=== PATIENT | male | born 1940 | race Caucasian/White ===

== ENCOUNTER 2024-06-14 15:16 | Emergency (ER) | payer MEDICARE, OTHER ==
[~2024-06-14] VITALS: Ht 167.6 cm; Wt 79.0 kg
[~2024-06-14 15:16] MED LIST: ALL100T PO; APIX5TAB OR; ATOR10TA52 PO; LEVO112T4 PO; LISI-275 PO
[2024-06-14 15:42] VITALS: BP 158/79; PULSE 63; RESP 16; TEMP 98.6; O2SAT 98
[2024-06-14] MEDS ORDERED: LIDOCAINE HCL (LOCAL ANESTH.) 0.5 % 50ML MDV IJ ONE (15:45)
--- NOTE | 2024-06-14 15:51 | ED.PDOC ---
HPI Comments A 84 YEAR OLD MALE PRESENTS TO THE ED WITH COMPLAINT OF LACERATION OF LEFT LOWER LEG. PATIENT STATES HE ACCIDENTALLY RAN INTO A [employer]AR[employer]ER TODAY WHICH THEN CUT HIS LEFT LOWER LEG. BLEEDING IS CONTROLLED AT THIS TIME. PATIENT DENIES FEVER, CHILLS, SHORTNESS OF BREATH, CHEST PAIN, ABDOMINAL PAIN, NAUSEA, VOMITING, HEADACHE, OR OTHER COMPLAINTS. NO OTHER SYMPTOMS OR MODIFYING FACTORS AT THIS TIME. PATIENT IS ALERT, ORIENTED X 4, AND HAS STEADY GAIT. Chief Complaint: Laceration Time Seen by MD: 15:37 Reviewed Notes: Nurses Notes, Medications, Allergies Allergies: Coded Allergies: NO KNOWN ALLERGIES (Unverified , 05/11/17) Home Meds Reported Medications Atorvastatin Calcium (ATORVASTATIN CALCIUM) 10 Mg Tab, 1 TAB PO DAILY, #30 TAB 5 Refills 05/11/17 Levothyroxine Sodium (Levothyroxine Sodium) 112 Mcg Tab, 1 TAB PO DAILY, #30 TAB 5 Refills 11/03/16 Allopurinol (ZYLOPRIM TABLET) 100 Mg Tb, 200 MG PO DAILY, #30 TAB 5 Refills 11/03/16 Lisinopril (Lisinopril) 5 Mg Tab, 5 MG PO QPM, TAB 11/03/16 Apixaban Base (ELIQUIS) 5 Mg Tab, 5 MG OR BID, TAB 11/03/16 Information Source: Patient Mode of Arrival: Ambulatory Severity: Moderate Severity of Laceration: Controlled Bleeding Complexity: Simple Timing: Hours Prehospital treatment: None Laceration Location: Leg (LEFT LOWER LEG) Mechanism: Other (ANTWAN SARGENT THORNS) Last Tetanus: > 5 Years, Unknown Laceration Length (cm): 10 Skin Type: Irregular Depth of Injury: SQ Tendon Injury: 0% Capillary Refill: < 3 seconds Tender: Moderate Discharge: None Erythema: None Associated Signs and Symptoms: None Past Medical History PAST MEDICAL HISTORY: High Lipids, HTN Surgical History: Pacemaker, Thyroidectomy Surgical History (Other): BILATERAL KNEE REPLACEMENT, RIGHT HIP REPLACEMENT Family History Family History: Reviewed,noncontributory to illness Social History Smoker: Non-Smoker Alcohol: Denies ETOH Use Drugs: Denies Drug Use Lives In: Home Constitutional: denies: chills, diaphoresis, fatigue, fever, malaise, sweats, weakness, others EENTM: denies: blurred vision, double vision, ear bleeding, ear discharge, ear drainage, ear pain, ear ringing, eye pain, eye redness, hearing loss, mouth pain, mouth swelling, nasal discharge, nose bleeding, nose congestion, nose pain, photophobia, tearing, throat pain, throat swelling, voice changes, others Respiratory: denies: cough, hemoptysis, orthopnea, SOB at rest, shortness of breath, SOB with excertion, stridor, wheezing, others Cardiovascular: denies: chest pain, dizzy spells, diaphoresis, Dyspnea on exertion, edema, irregular heart beat, left arm pain, lightheadedness, palpitations, PND, syncope, others Gastrointestinal: denies: abdomen distended, abdominal pain, blood streaked bowels, constipated, diarrhea, dysphagia, difficulty swallowing, hematemesis, melena, nausea, poor appetite, poor fluid intake, rectal bleeding, rectal pain, vomiting, others Genitourinary: denies: burning, dysuria, flank pain, frequency, hematuria, incontinence, penile discharge, penile sore, pain, testicle pain, testicle swelling, urgency, others Neurological: denies: dizziness, fainting, headache, left sided numbness, left sided weakness, numbness, paresthesia, pre-existing deficit, right sided numbness, right sided weakness, seizure, speech problems, tingling, tremors, weakness, others Musculoskeletal: denies: back pain, gout, joint pain, joint swelling, muscle pain, muscle stiffness, neck pain, others Integumetry: reports: laceration (LACERATION OF LEFT LOWER LEG), lesions (SKIN TEAR OF LEFT ANTERIOR LOWER LEG. ); denies: bruises, change in color, change in hair/nails, dryness, lumps, rash, wounds, others Allergic/Immunocompromised: denies: Difficulty Healing, Frequent Infections, Hives, Itching, others Hematologic/Lymphatic: denies: anemia, blood clots, easy bleeding, easy bruising, swollen glands, others Endocrine: denies: excessive hunger, excessive sweating, excessive thirst, excessive urination, flushing, intolerance to cold, intolerance to heat, unexplained weight gain, unexplained weight loss, others Psychiatric: denies: anxiety, bipolar disorder, depression, hopeless, panic disorder, schizophrenia, sleepless, suicidal, others All Other Systems: Reviewed and Negative Physical Exam General Appearance: No Apparent Distress, Normal HEENT: Normal ENT Inspection, PERRL/EOMI, Pharynx Normal, TMs Normal Neck: Full Range of Motion, Non-Tender, Normal, Normal Inspection Respiratory: Chest Non-Tender, Lungs Clear, No Accessory Muscle Use, No Respiratory Distress, Normal Breath Sounds Cardiovascular: No Edema, No JVD, No Murmur, No Gallop, Normal Peripheral Pulses, Regular Rate/Rhythm Breast Exam: Deferred Gastrointestinal: No Organomegaly, Non Tender, No Pulsatile Mass, Normal Bowel Sounds, Soft Genitalia: Deferred Pelvic: Deferred Rectal: Deferred Extremities: No calf tenderness, Normal capillary refill, Normal range of motion, No pedal edema, Tender (WITH LACERATION AND SKIN TEAR ON LEFT ANTERIOR LOWER LEG, NO BONY TENDERNESS, SWELLING AND DEFORMITY. ) Musculoskeletal : Apperance: Normal Neurologic: Alert, manufacturing support engineer II-XII nml as Tested, No Motor Deficits, Normal Affect, Normal Mood, No Sensory Deficits Cerebellar Function: Normal Reflexes: Normal Skin: Dry, Lacerations (10CM IRREGULAR LACERATION ON LEFT ANTERIOR LOWER LEG, NO BLEEDING AND BLOOD CLOTS, TWO SKIN TEARS ON LEFT ANTERIOR LOWER LEG, NO BLEEDING AND BLOOD CLOTS. ), Normal Color, Warm Peripheral Pulses: 2+ carotid (R), 2+ carotid (L), 2+ dorsalis pedis (R), 2+ dorsalis pedis (L) Lymphatic: No Adenopathy Was a procedure done? Was a procedure done?: Yes Sedation Sedation?: No Laceration Repair : Location LEFT LOWER LEG Length 10CM Anesthetic: Lidocaine, Without epi Laceration Repair Prep: Saline, by Irrigation Laceration Repair Wound Comple: epidermis/dermis repair Laceration Repair: Number of sutures (20), Skin, SQ, Size (4-0 ETHILON), Nylon, Simple, Bacitracin, Gauze Informed consent obtained: No Risks, benefits, and alternati: Yes Images 1 - 2 - Differential diagnosis Generic Laceration: Abrasion/Contusion, Laceration, Avulsion Differential Diagnosis: N/A X-Ray, Labs, Meds, VS Vital Signs Date Time Temp Pulse Resp B/P (MAP) Pulse Ox O2 Delivery O2 Flow Rate FiO2 06/14/24 15:42 63 16 98 Room Air 06/14/24 15:42 98.6 63 16 158/79 (105) 98 98.6 06/14/24 15:20 98.6 63 16 158/79 (105) 98 Current Medications Medications (Trade) Dose Ordered Sig/Jose Route Start Time Stop Time Status Last Admin Ceftriaxone Sodium (Rocephin) 1,000 mg ONCE ONCE IM 06/14/24 16:15 06/14/24 16:16 DC 06/14/24 16:23 Diphtheria/ Tetanus/Acell Pertussis (Boostrix T-Dap) 0.5 ml ONCE ONCE IM 06/14/24 16:15 06/14/24 16:16 DC 06/14/24 16:25 X-Ray, Labs, Meds, VS Comment EXTERNAL MEDICAL RECORDS REVIEWED: [NONE] INDEPENDENT HISTORIANS: [NONE] SOCIAL DETERMINANTS OF HEALTH: [NONE] LABS ORDERED: NONE REVIEWED AND INTERPRETED RESULTS: NONE IMAGING ORDERED: NONE TREATMENTS ORDERED: ROCEPHIN 1G IM, TYLENOL 1G PO, TETANUS 0.5ML IM PROCEDURES PERFORMED: NONE CRITICAL CARE TIME: NONE I HAVE DISCUSSED THE PATIENT WITH THE ATTENDING PHYSICIAN DR. ONEIL AND HE AGREES WITH THE PATIENT'S PLAN OF CARE AND DISPOSITION. BASED ON HISTORY OF PRESENT ILLNESS, AND PHYSICAL EXAM, PATIENT WILL BE DISCHARGED HOME. DISCUSSED PLAN FOR DISCHARGE HOME WITH RX [KEFLEX]. MEDICATION WARNINGS GIVEN. PATIENTWAS INSTRUCTED TO ELEVATE HIS LEFT LOWER LEG AND APPLY ICE TO THE AFFECTED AREA. PATIENT WAS INSTRUCTED TO RETURN FOR A WOUND RECHECK IN TWO DAYS. SHARED DECISION MAKING: PATIENT INSTRUCTED TO FOLLOW UP WITH PRIMARY CARE PROVIDER IN 1-2 DAYS FOR RE-EVALUATION OF SYMPTOMS. PATIENT VERBALIZES UNDERSTANDING TO RETURN TO ED FOR NEW OR WORSENING SYMPTOMS OR IF FOLLOW UP WITH PCP CANNOT BE OBTAINED. PATIENT FEELS COMFORTABLE GOING HOME AT THIS TIME. ALL QUESTIONS ADDRESSED AT TIME OF DISCHARGE. Time of 1ST Reevaluation: 16:00 Reevaluation 1ST: Improved Patient Education/Counseling: Diagnosis, Treatment, Need For Follow Up Family Education/Counseling: Diagnosis, Treatment, Need For Follow Up Medical Screening: No EMC Exist At This Time Departure 1 Departure Time of Disposition: 16:00 Impression: Primary Impression: Laceration of left lower leg Qualified Codes: S81.812A - Laceration without foreign body, left lower leg, initial encounter Additional Impression: Skin tear of left lower leg without complication Qualified Codes: S81.812A - Laceration without foreign body, left lower leg, initial encounter Disposition: HOME / SELF CARE / HOMELESS Condition: Stable Additional Instructions: FOLLOW-UP WITH PCP IN 1 TO 2 DAYS. TAKE MEDICATIONS PRESCRIBED. RETURN TO ED FOR ANY NEW OR WORSENING SYMPTOMS. e-Prescriptions Acetaminophen (Tylenol 8 Hour Arthritis) 650 Mg Tab 650 MG PO TID, #30 TAB Prov: IAIN LAMBERT 06/14/24 Cephalexin Monohydrate (Cephalexin) 500 Mg Cap 1 CAP PO QID, #40 CAP Prov: IAIN LAMBERT 06/14/24 Discharged With: Self Critical Care Note Critical Care Time?: No Stability Stability form required: No I personally scribed for IAIN LAMBERT ([email or web address]) on 06/14/24 at 15:51. Electronically submitted by Shad Langley ([email or web address]). I personally scribed for IAIN LAMBERT ([email or web address]) on 06/14/24 at 16:13. Electronically submitted by Shad Langley ([email or web address]). IAIN LAMBERT Jun 14, 2024 15:51
[2024-06-14] MEDS: LIDOCAINE 1% HCL (LOCAL ANESTH.) INJ 20ML MDV IJ ONE (15:52)
[2024-06-14] MEDS: cefTRIAXone SOD 1,000 MG VL IM ONE (16:23)
[2024-06-14] MEDS: TETANUS-DIPTH-ACEL PERTUSSIS 0.5ML SYR Tdap IM ONE (16:25)
[2024-06-14] MEDS ORDERED: CEPH500C PO (16:39)
[2024-06-14] MEDS ORDERED: ACET-1080 PO (16:39)
== END 2024-06-14 16:43 | disposition home or self-care (01) ==
LOC: ER 15:16
DX: S81.812A Laceration without foreign body, left lower leg, initial encounter (principal); I10 Essential (primary) hypertension; Z79.01 Long term (current) use of anticoagulants; Z79.890 Hormone replacement therapy; Z79.899 Other long term (current) drug therapy; Z90.89 Acquired absence of other organs; Z95.0 Presence of cardiac pacemaker; Z96.641 Presence of right artificial hip joint; Z96.653 Presence of artificial knee joint, bilateral; W26.8XXA Contact with other sharp object(s), not elsewhere classified, initial encounter; Y93.89 Activity, other specified; Y92.89 Other specified places as the place of occurrence of the external cause; Y99.8 Other external cause status
CPT/HCPCS: 12004; 90471; 90715; 96372; 99284; J0696; J2003

== ENCOUNTER 2024-06-15 08:55 | Emergency (ER) | payer MEDICARE, OTHER ==
[~2024-06-15] VITALS: Ht 167.6 cm; Wt 81.0 kg
[~2024-06-15 08:55] MED LIST changes: +ACET-1080 PO; +CEPH500C PO
--- NOTE | 2024-06-15 10:07 | ED.PDOC ---
History of Present Illness HPI Comments 84 y/o M, with a Hx of AFIB s/p PPM and on Eliquis, bladder CA, HLD, HTN, pacemaker, and hypothyroidism s/p thyroidectomy, presents with c/o left lower leg wound w/associated discharge, today. Patient endorses on returning to the ED after being seen and evaluated s/p fall and injury, yesterday. Patient comments on injuring his left leg after stepping into a merari goddard, while gardening, and having his wound dressed by ED staff during aforementioned visit then. He states, now, on wound still bleeding. He denies any pain, weakness, numbness, or tingling sensation to leg along with any fever, chills, or other associated symptoms or modifiers at this time. Chief Complaint: Wound Check Time Seen by MD: 09:45 Reviewed Notes: Nurses Notes, Medications, Allergies Allergies: Coded Allergies: NO KNOWN ALLERGIES (Unverified , 05/11/17) Home Meds Active Scripts Acetaminophen (Tylenol 8 Hour Arthritis) 650 Mg Tab, 650 MG PO TID, #30 TAB Prov:IAIN LAMBERT 06/14/24 Cephalexin Monohydrate (Cephalexin) 500 Mg Cap, 1 CAP PO QID, #40 CAP Prov:IAIN LAMBERT 06/14/24 Reported Medications Atorvastatin Calcium (ATORVASTATIN CALCIUM) 10 Mg Tab, 1 TAB PO DAILY, #30 TAB 5 Refills 05/11/17 Levothyroxine Sodium (Levothyroxine Sodium) 112 Mcg Tab, 1 TAB PO DAILY, #30 TAB 5 Refills 11/03/16 Allopurinol (ZYLOPRIM TABLET) 100 Mg Tb, 200 MG PO DAILY, #30 TAB 5 Refills 11/03/16 Lisinopril (Lisinopril) 5 Mg Tab, 5 MG PO QPM, TAB 11/03/16 Apixaban Base (ELIQUIS) 5 Mg Tab, 5 MG OR BID, TAB 11/03/16 Information Source: Patient Mode of Arrival: Ambulatory Severity: Moderate Timing: Hours Duration: Since onset Prehospital treatment: None Past Medical History PAST MEDICAL HISTORY: AFIB, Arthritis, Cancer (bladder CA ), High Lipids, HTN, Thyroid (hypothyroidism ) Surgical History: Pacemaker, Thyroidectomy Surgical History (Other): PPM, right knee arthroplasty Family History Family History: Reviewed,noncontributory to illness Social History Smoker: Non-Smoker Alcohol: Denies ETOH Use Drugs: Denies Drug Use Lives In: Home Integumetry: reports: wounds (left lower leg, with discharge ) All Other Systems: Reviewed and Negative (negative unless otherwise stated above or in HPI) Physical Exam General Appearance: No Apparent Distress, Normal HEENT: Normal ENT Inspection, Pharynx Normal, TMs Normal Neck: Full Range of Motion, Non-Tender, Normal, Normal Inspection Respiratory: Chest Non-Tender, Lungs Clear, No Accessory Muscle Use, No Respiratory Distress, Normal Breath Sounds Cardiovascular: No Edema, No JVD, No Murmur, No Gallop, Normal Peripheral Pulses, Regular Rate/Rhythm Breast Exam: Deferred Gastrointestinal: No Organomegaly, Non Tender, No Pulsatile Mass, Normal Bowel Sounds, Soft Genitalia: Deferred Pelvic: Deferred Rectal: Deferred Extremities: No calf tenderness, Normal capillary refill, Normal range of motion, Non-tender, No pedal edema, Other (LLE oozing wound ) Musculoskeletal : Apperance: Normal Neurologic: Alert, sales program coordinator II-XII nml as Tested, No Motor Deficits, Normal Affect, Normal Mood, No Sensory Deficits Cerebellar Function: Normal Reflexes: Normal Skin: Dry, Normal Color, Warm, Wounds (oozing wound to LLE ) Lymphatic: No Adenopathy Was a procedure done? Was a procedure done?: No Differential Dx Considerations may include: non-healing wound, uncontrolled bleeding, wound discharge X-Ray, Labs, Meds, VS Vital Signs Date Time Temp Pulse Resp B/P (MAP) Pulse Ox O2 Delivery O2 Flow Rate FiO2 06/15/24 10:12 Room Air* 0 21 06/15/24 09:15 98.1 86 18 134/62 (86) 99 X-Ray, Labs, Meds, VS Comment This is a pleasant well-appearing 84-year-old male presents to emergency room secondary to using to a left lower extremity wound that was sutured yesterday. The patient is on blood thinners/Eliquis. He has no other complaints. Here, he has certain she will placed on the wound. He was there for greater than 1 hour. It did not rebleed. Past su8ch, the patient was discharged home. He denies follow up with PCP in the morning or return to the ER for new/worse has worsening symptoms. He states his understanding. He was also informed that in approximately 10 days, he will require suture removal. He states understanding. As such, the patient will be discharged home Time of 1ST Reevaluation: 10:15 Reevaluation 1ST: Unchanged Patient Education/Counseling: Diagnosis, Treatment Family Education/Counseling: No Family Present Departure 1 Departure Time of Disposition: 10:48 Impression: Primary Impression: Laceration of left lower leg Additional Impression: Skin tear of left lower leg without complication Disposition: 01 HOME / SELF CARE / HOMELESS Condition: Good Discharged With: Self Critical Care Note Critical Care Time?: No Stability Stability form required: No Heart Score Heart Score: Heart Score Response (Comments) Value History N/A 0 EKG N/A 0 Age N/A 0 Risk Factors N/A 0 Troponin N/A 0 Total 0 I personally scribed for TOSHIA RUIZ MD ([email or web address]) on 06/15/24 at 10:07. Electronically submitted by Jordan Aguilar ([email or web address]). TOSHIA RUIZ MD Jun 15, 2024 10:07
[2024-06-15 10:56] VITALS: BP 157/76; PULSE 69; RESP 16; TEMP 98.1; O2SAT 97
== END 2024-06-15 10:59 | disposition home or self-care (01) ==
LOC: ER 08:55
DX: S81.812A Laceration without foreign body, left lower leg, initial encounter (principal); E78.5 Hyperlipidemia, unspecified; E89.0 Postprocedural hypothyroidism; I10 Essential (primary) hypertension; M19.90 Unspecified osteoarthritis, unspecified site; Z79.01 Long term (current) use of anticoagulants; Z79.890 Hormone replacement therapy; Z79.899 Other long term (current) drug therapy; Z85.51 Personal history of malignant neoplasm of bladder; Z90.89 Acquired absence of other organs; Z95.0 Presence of cardiac pacemaker; W10.8XXA Fall (on) (from) other stairs and steps, initial encounter; Y93.89 Activity, other specified; Y92.89 Other specified places as the place of occurrence of the external cause; Y99.8 Other external cause status

== ENCOUNTER 2025-05-24 07:46 | Emergency (ER) | payer MEDICARE, OTHER ==
[~2025-05-24] VITALS: Ht 167.6 cm; Wt 76.6 kg
[~2025-05-24 07:46] MED LIST changes: +BACDST PO
--- NOTE | 2025-05-24 08:16 | ED.PDOC ---
History of Present Illness(SKN HPI Comments 85-year-old male presents to the emergency department for chief complaint of wound check. Patient states he had a skin biopsy on his right forearm done approximately x3 weeks ago. Patient relays, that the wound began to bleed as of today, (05/24/25); bleeding is controlled at this time. Patient reports that he is on Eliquis. Patient denies any trauma, injury, or fall Chief Complaint: Wound Check Time Seen by MD: 08:05 Primary Care Provider: ROGER History of Present Illness: Nurses Notes, Medications, Allergies Allergies: Coded Allergies: NO KNOWN ALLERGIES (Unverified , 05/11/17) Home Meds Active Scripts Sulfamethoxazole W/Trimethopri (Bactrim Ds Tablet) 1 Tab Tb, 1 TAB PO BID for 7 Days, #14 TAB Prov:MICHAEL CAVAZOS MD 06/24/24 Acetaminophen (Tylenol 8 Hour Arthritis) 650 Mg Tab, 650 MG PO TID, #30 TAB Prov:IAIN LAMBERT 06/14/24 Cephalexin Monohydrate (Cephalexin) 500 Mg Cap, 1 CAP PO QID, #40 CAP Prov:IAIN LAMBERT 06/14/24 Reported Medications Atorvastatin Calcium (ATORVASTATIN CALCIUM) 10 Mg Tab, 1 TAB PO DAILY, #30 TAB 5 Refills 05/11/17 Levothyroxine Sodium (Levothyroxine Sodium) 112 Mcg Tab, 1 TAB PO DAILY, #30 TAB 5 Refills 11/03/16 Allopurinol (ZYLOPRIM TABLET) 100 Mg Tb, 200 MG PO DAILY, #30 TAB 5 Refills 11/03/16 Lisinopril (Lisinopril) 5 Mg Tab, 5 MG PO QPM, TAB 11/03/16 Apixaban Base (ELIQUIS) 5 Mg Tab, 5 MG OR BID, TAB 11/03/16 Information Source: Patient, Spouse Mode of Arrival: Ambulatory Severity: Moderate Timing: Days Duration: Since onset Prehospital treatment: None Location: Arm ( right forearm) Mechanism: Spontaneous Onset Retained Foreign Body: No History of: None Associated Signs and Symptoms: Other (Bleeding) Past Medical History PAST MEDICAL HISTORY: AFIB, Arthritis, Cancer, High Lipids, HTN, Thyroid Surgical History: Pacemaker, Thyroidectomy Family History Family History: Reviewed,noncontributory to illness Social History Smoker: Non-Smoker Alcohol: Denies ETOH Use Drugs: Denies Drug Use Lives In: Home Constitutional: denies: chills, diaphoresis, fatigue, fever, malaise, sweats, weakness, others EENTM: denies: blurred vision, double vision, ear bleeding, ear discharge, ear drainage, ear pain, ear ringing, eye pain, eye redness, hearing loss, mouth pain , mouth swelling, nasal discharge, nose bleeding, nose congestion, nose pain, photophobia, tearing, throat pain, throat swelling, voice changes, others Respiratory: denies: cough, hemoptysis, orthopnea, SOB at rest, shortness of breath, SOB with excertion, stridor, wheezing, others Cardiovascular: denies: chest pain, dizzy spells, diaphoresis, Dyspnea on exertion, edema, irregular heart beat, left arm pain, lightheadedness, palpitations, PND, syncope, others Gastrointestinal: denies: abdomen distended, abdominal pain, blood streaked bowels, constipated, diarrhea, dysphagia, difficulty swallowing, hematemesis, melena, nausea, poor appetite, poor fluid intake, rectal bleeding, rectal pain, vomiting, others Genitourinary: denies: burning, dysuria, flank pain, frequency, hematuria, incontinence, penile discharge, penile sore, pain, testicle pain, testicle swelling, urgency, others Neurological: denies: dizziness, fainting, headache, left sided numbness, left sided weakness, numbness, paresthesia, pre-existing deficit, right sided numbness, right sided weakness, seizure, speech problems, tingling, tremors, weakness, others Musculoskeletal: denies: back pain, gout, joint pain, joint swelling, muscle pain, muscle stiffness, neck pain, others Integumetry: reports: wounds (Right Forearm); denies: bruises, change in color, change in hair/nails, dryness, laceration, lesions, lumps, rash, others Allergic/Immunocompromised: denies: Difficulty Healing, Frequent Infections, Hives, Itching, others Hematologic/Lymphatic: denies: anemia, blood clots, easy bleeding, easy bruising, swollen glands, others Endocrine: denies: excessive hunger, excessive sweating, excessive thirst, excessive urination, flushing, intolerance to cold, intolerance to heat, unexplained weight gain, unexplained weight loss, others Psychiatric: denies: anxiety, bipolar disorder, depression, hopeless, panic disorder, schizophrenia, sleepless, suicidal, others All Other Systems: Reviewed and Negative Physical Exam General Appearance: Moderate Distress HEENT: Normal ENT Inspection, Pharynx Normal, TMs Normal Neck: Full Range of Motion, Non-Tender, Normal, Normal Inspection Respiratory: Chest Non-Tender, Lungs Clear, No Accessory Muscle Use, No Respiratory Distress, Normal Breath Sounds Cardiovascular: No Edema, No JVD, No Murmur, No Gallop, Normal Peripheral Pulses, Regular Rate/Rhythm Breast Exam: Deferred Gastrointestinal: No Organomegaly, Non Tender, No Pulsatile Mass, Normal Bowel Sounds, Soft Genitalia: Deferred Pelvic: Deferred Rectal: Deferred Extremities: No calf tenderness, Normal capillary refill, Normal inspection, Normal range of motion, Non-tender, No pedal edema Musculoskeletal : Apperance: Normal Neurologic: Alert, oil field equipment mechanic supervisor II-XII nml as Tested, No Motor Deficits, Normal Affect, Normal Mood, No Sensory Deficits Cerebellar Function: NOT DONE Reflexes: NOT DONE Skin: Wounds (Right forearm) Peripheral Pulses: 3+ Radial (R), 3+ Radial (L) Lymphatic: No Adenopathy Was a procedure done? Was a procedure done?: Yes Sedation Sedation?: No Other Procedure Procedure Cautery Indication Biopsy site bleeding Success Controlled Informed consent obtained: Yes Risks, benefits, and alternati: Yes Notes Pack dressing Differential Diagnosis (INTG) Differential Diagnosis: Puncture Wound X-Ray, Labs, Meds, VS Vital Signs Date Time Temp Pulse Resp B/P (MAP) Pulse Ox O2 Delivery O2 Flow Rate FiO2 05/24/25 08:58 98.2 63 20 199/86 (123) 99 98.2 05/24/25 08:58 63 20 99 Room Air 05/24/25 07:48 97.8 94 18 189/104 95 97.8 Patient alert. Bleeding from the biopsy site of the right forearm. Blood pressure elevated. Patient insists on going home. Cauterized the wound. Pressure dressing. Explained to the patient that he will be admitted. Insists on going home. Continue monitoring. Time of 1ST Reevaluation: 08:35 Reevaluation 1ST: Unchanged Patient Education/Counseling: Diagnosis, Treatment Family Education/Counseling: Diagnosis, Treatment SEPSIS Sepsis Screen Date sepsis recognized/suspect: May 24, 2025 Time Sepsis recognized/suspect: 0748 Recent Procedure: No On Antibiotic Therapy: No Respiratory Rate >20: No Heart Rate >90: Yes Temp<36 C (96.8 F) or >38.3 C: No SBP <90 or MAP <65 mmHG: No New Acute Mental Status Change: No Is the patient on CPAP, BIPAP,: No Vital Signs Date Time Temp Pulse Resp B/P (MAP) Pulse Ox O2 Delivery O2 Flow Rate FiO2 05/24/25 08:58 98.2 63 20 199/86 (123) 99 98.2 05/24/25 08:58 63 20 99 Room Air 05/24/25 07:48 97.8 94 18 189/104 95 97.8 Departure 1 Departure Time of Disposition: 09:48 Impression: Primary Impression: Hypertensive emergency Additional Impression: Encounter for wound care Disposition: ADMITTED INPATIENT Admit to: Med Surg Condition: Guarded Critical Care Note Critical Care Time?: Yes (35 min-critical care time only) Stability Stability form required: No Heart Score Heart Score: Heart Score Response (Comments) Value History N/A 0 EKG N/A 0 Age N/A 0 Risk Factors N/A 0 Troponin N/A 0 Total 0 I personally scribed for MELANIE ONEIL MD ([email or web address]) on 05/24/25 at 08:16. Electronically submitted by Phoebe Barber ([email or web address]). I personally scribed for MELANIE ONEIL MD ([email or web address]) on 05/24/25 at 08:47. Electronically submitted by Phoebe Barber ([email or web address]). MELANIE ONEIL MD May 24, 2025 08:16
[2025-05-24 08:58] VITALS: BP 199/86; PULSE 63; RESP 20; TEMP 98.2; O2SAT 99
[2025-05-24] MEDS ORDERED: TRANEXAMIC ACID 1,000 MG in SODIUM CHL 0.9% 100 ML IV ONE (10:00)
== END 2025-05-24 10:25 | disposition left against medical advice (07) ==
LOC: ER 07:46
DX: I16.1 Hypertensive emergency (principal); I10 Essential (primary) hypertension; E78.5 Hyperlipidemia, unspecified; I48.91 Unspecified atrial fibrillation; M19.90 Unspecified osteoarthritis, unspecified site; Z79.899 Other long term (current) drug therapy; Z48.00 Encounter for change or removal of nonsurgical wound dressing; Z79.890 Hormone replacement therapy; Z79.01 Long term (current) use of anticoagulants; Z95.0 Presence of cardiac pacemaker; Z90.89 Acquired absence of other organs; Z85.850 Personal history of malignant neoplasm of thyroid